=== PATIENT | male | born 1995 | race Caucasian/White ===

== ENCOUNTER 2017-07-30 16:11 | Emergency (ER) | payer BC ==
[2017-07-30 16:35] VITALS: BP 169/69
--- NOTE | 2017-07-30 17:11 | UC ---
Throat Pain/Nasal Beto HPI - HPI Summary HPI Summary: Pt presents with ST for one week. He tells me that about a week ago he developed a ST. The last 2-3 days he has had a mild headache. Both were relieved with ibuprofen. He had a friend who was recently dx'd with strep throat and wants to make sure he does not have it as well. He denies fever, chills, cough, SOB, chest pain, abdominal pain, N/V/D/C. - History of Current Complaint Chief Complaint: UCGeneralIllness Stated Complaint: THROAT PAIN Time Seen by Provider: 07/30/17 16:50 Hx Obtained From: Patient Onset/Duration: Gradual Onset Severity: Mild Pain Intensity: 2 Pain Scale Used: 0-10 Numeric - Allergies/Home Medications Allergies/Adverse Reactions: Allergies Allergy/AdvReac Type Severity Reaction Status Date / Time No Known Allergies Allergy Unverified 07/08/14 10:35 PMH/Surg Hx/FS Hx/Imm Hx Previously Healthy: Yes - Surgical History Surgical History: Yes Surgery Procedure, Year, and Place: needle removed from foot (not sure which) - Family History Known Family History: Positive: Cardiac Disease, Hypertension - Social History Occupation: Employed Full-time Lives: Alone Alcohol Use: Occasionally Substance Use Type: None Smoking Status (MU): Never Smoked Tobacco Review of Systems Constitutional: Negative Skin: Negative Eyes: Negative ENT: Sore Throat Respiratory: Negative Cardiovascular: Negative Gastrointestinal: Negative Neurological: Headache Psychological: Negative All Other Systems Reviewed And Are Negative: Yes Physical Exam Triage Information Reviewed: Yes Appearance: Well-Appearing, Well-Nourished Vital Signs: Initial Vital Signs Temp 98.2 F 07/30/17 16:29 Pulse 77 07/30/17 16:29 Resp 18 07/30/17 16:29 BP 169/69 07/30/17 16:29 Pulse Ox 100 07/30/17 16:29 Vital Signs Reviewed: Yes Eyes: Positive: Conjunctiva Clear, Other: - PERRLA. EOMI.. Negative: Conjunctiva Inflamed, Discharge ENT: Positive: Hearing grossly normal, Pharynx normal, TMs normal, Uvula midline. Negative: Pharyngeal erythema, Nasal congestion, Nasal drainage, TM bulging, TM dull, TM red, Tonsillar swelling, Tonsillar exudate, Muffled voice, Hoarse voice, Dental tenderness, Sinus tenderness Dental: Negative: Percussion Tenderness @, Dental Fracture @, Abscess @, Cellulitis @, Cervical Lymphadenopathy, Bleeding Neck: Positive: Supple, Nontender, No Lymphadenopathy Respiratory: Positive: Chest non-tender, Lungs clear, Normal breath sounds, No respiratory distress, No accessory muscle use Cardiovascular: Positive: RRR, No Murmur, Pulses Normal Neurological: Positive: Alert Psychological: Positive: Age Appropriate Behavior Skin: Negative: rashes Throat Pain/Nasal Course/Dx - Course Course Of Treatment: POC strep negative. Suspect viral illness. No indication for anbx at this time. Pt was agreeable to this and will continue with fluids and tylenol/ibuprofen. Regarding his elevated blood pressure at today's vist, he says that HTN runs in his family. 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 He will contact his bite block maker's office to see if they can recommend a new PCP for him - I also gave him the PCP referral number to call. Advised f/u within 1 month. Any increasing headache, dizziness, vision changes, weakness, SOB, or chest pain - go to ED. - Differential Dx/Diagnosis Differential Diagnosis/HQI/PQRI: Laryngitis, Mononucleosis, Pharyngitis, Tonsillitis, URI Provider Diagnoses: Viral pharyngitis Discharge - Discharge Plan Condition: Stable Disposition: HOME Patient Education Materials: Pharyngitis (ED) Referrals: Joaquin Sinclair MD [Primary Care Provider] - Additional Instructions: If you develop a fever, SOB, chest pain, new or worsening symptoms - please call your PCP or go to the ED. Your blood pressure was high at todays visit. Please see your primary provider within 4 weeks for recheck and re-evaluation. Strep test was negative today and there are no signs of bacterial infection on today's exam. Continue taking tylenol and/or ibuprofen for any fever or discomfort. Rest and drink plenty of water.
== END 2017-07-30 17:20 | disposition home or self-care (01) ==
LOC: UCEAST 16:11
DX: J02.8 Acute pharyngitis due to other specified organisms (principal); R03.0 Elevated blood-pressure reading, without diagnosis of hypertension; Z82.49 Family history of ischemic heart disease and other diseases of the circulatory system
CPT/HCPCS: 87651; 99201; G0463

== ENCOUNTER 2018-03-28 13:54 | Emergency (ER) | payer BC, OTHER ==
[2018-03-28 14:43] VITALS: BP 141/74
--- NOTE | 2018-03-28 15:35 | UC ---
Lower Extremity/Ankle HPI - HPI Summary HPI Summary: 22 yo male presents with LEFT foot injury. He tells me that yesterday while at work his left foot was slammed between a log and a tree stump. Had severe immediate pain and a significant limp all day yesterday. Today his pain is much improved and he is walking without a limp. He is here "just to make sure nothing is broken". Has not taken anything for the pain. Denies numbness or tingling. - History of Current Complaint Chief Complaint: UCLowerExtremity Stated Complaint: FOOT INJURY Time Seen by Provider: 03/28/18 15:35 Onset/Duration: Sudden Onset Severity Initially: Mild Severity Currently: Mild Pain Intensity: 3 Pain Scale Used: 0-10 Numeric Aggravating Factor(s): Standing, Ambulation Able to Bear Weight: Yes Related History: Occupational Injury - Allergies/Home Medications Allergies/Adverse Reactions: Allergies Allergy/AdvReac Type Severity Reaction Status Date / Time No Known Allergies Allergy Unverified 03/28/18 14:44 PMH/Surg Hx/FS Hx/Imm Hx - Additional Past Medical History Additional PMH: None Previously Healthy: Yes - Surgical History Surgical History: Yes Surgery Procedure, Year, and Place: needle removed from foot (not sure which) - Family History Known Family History: Positive: Unknown, Cardiac Disease, Hypertension - Social History Occupation: Employed Full-time Lives: With Family Alcohol Use: Occasionally Substance Use Type: None Smoking Status (MU): Never Smoked Tobacco Review of Systems Constitutional: Negative Skin: Negative Respiratory: Negative Cardiovascular: Negative Neurovascular: Negative Musculoskeletal: Other: - Left foot pain Neurological: Negative Psychological: Negative All Other Systems Reviewed And Are Negative: Yes Physical Exam - Summary Physical Exam Summary: GENERAL: NAD. WDWN. No pain distress. SKIN: No rashes, sores, lesions, or open wounds. NECK: Supple. Nontender. No lymphadenopathy. CHEST: No accessory muscle use. Breathing comfortably and in no distress. CV: Pulses intact PT and DP. Brisk cap refill. MSK: LEFT FOOT: Mild TTP over medial arch with superficial abrasion. Strength 5/ 5. No edema or obvious bony deformities. NEURO: Alert. Sensations intact and symmetric B/L LEs PSYCH: Age appropriate behavior. Triage Information Reviewed: Yes Vital Signs: Initial Vital Signs Temp 98.0 F 03/28/18 14:38 Pulse 53 03/28/18 14:38 Resp 16 03/28/18 14:38 BP 141/74 03/28/18 14:38 Pulse Ox 100 03/28/18 14:38 Vital Signs Reviewed: Yes Lower Extremity Course/Dx - Course Course Of Treatment: XR: IMPRESSION: NEGATIVE EXAMINATION. Foot is feeling better today. Suspect contusion. Advised to ice the area and take ibuprofen q6h prn pain. - Differential Dx/Diagnosis Provider Diagnoses: Left foot contusion Discharge - Sign-Out/Discharge Documenting (check all that apply): Patient Departure - Discharge Plan Condition: Stable Disposition: HOME Patient Education Materials: Foot Contusion (ED) Referrals: Anderson Middleton MD [Primary Care Provider] - [facility] [Provider Group] - If Needed Additional Instructions: If you develop a fever, shortness of breath, chest pain, new or worsening symptoms - please call your PCP or go to the ED. Your blood pressure was high at todays visit. Please see your primary provider within 4 weeks for recheck and re-evaluation. 1) Rest, Ice, and elevate your foot as much as possible. 2) If your symptoms worsen - please call Orthopedics at the number below to schedule a follow up appointment - Billing Disposition and Condition Condition: STABLE Disposition: Home
--- NOTE | 2018-03-28 15:50 | RAD ---
INDICATION: Left foot injury COMPARISON: None TECHNIQUE: AP, lateral, and oblique views were obtained. FINDINGS: The bony structures, joint spaces, and soft tissues are normal for age. IMPRESSION: NEGATIVE EXAMINATION.
== END 2018-03-28 16:00 | disposition home or self-care (01) ==
LOC: UCEAST 13:54
DX: S90.32XA Contusion of left foot, initial encounter (principal); W23.0XXA Caught, crushed, jammed, or pinched between moving objects, initial encounter; Y93.89 Activity, other specified; Y92.9 Unspecified place or not applicable; Y99.0 Civilian activity done for income or pay; Z82.49 Family history of ischemic heart disease and other diseases of the circulatory system
CPT/HCPCS: 99211; G0463

== ENCOUNTER 2019-10-16 10:07 | Emergency (ER) | payer BC ==
[2019-10-16 11:35] VITALS: BP 135/75
--- NOTE | 2019-10-16 11:36 | UC ---
Skin Complaint HPI - HPI Summary HPI Summary: 23 yo male presents with abscess. He tells me that last night he noticed swelling and pain to his right lower jaw. He had a full echols and has had small abscesses in the past, but nothing this large. He shaved his echols this morning and came to for evaluation. Area is mildly tender. No fevers, drainage, or hx of MRSA - History of Current Complaint Chief Complaint: UCSkin Time Seen by Provider: 10/16/19 11:36 Stated Complaint: ABSCESS Hx Obtained From: Patient Onset/Duration: Sudden Onset Onset Severity: Mild Current Severity: Mild Pain Intensity: 2 Pain Scale Used: 0-10 Numeric - Allergy/Home Medications Allergies/Adverse Reactions: Allergies Allergy/AdvReac Type Severity Reaction Status Date / Time No Known Allergies Allergy Verified 10/16/19 11:35 Home Medications: Home Medications Sulfamethox/Trimethoprim DS* [Bactrim DS 800/160 TAB*] 1 tab PO BID 7 Days #14 tab 10/16/19 [Rx] PMH/Surg Hx/FS Hx/Imm Hx - Additional Past Medical History Additional PMH: None - Surgical History Surgical History: Yes Surgery Procedure, Year, and Place: needle removed from foot (not sure which) - Family History Known Family History: Positive: Cardiac Disease, Hypertension - Social History Occupation: Employed Full-time Lives: With Family Alcohol Use: Occasionally Substance Use Type: None Smoking Status (MU): Never Smoked Tobacco Review of Systems All Other Systems Reviewed And Are Negative: No Constitutional: Positive: Negative Skin: Positive: Other - Abscess face Respiratory: Positive: Negative Cardiovascular: Positive: Negative Neurovascular: Positive: Negative Neurological/Mental Status: Positive: Negative Psychological: Positive: Negative Physical Exam - Summary Physical Exam Summary: GENERAL: NAD. WDWN. No pain distress. SKIN: Overlying the right mid mandible there is a 1.5cm area of mild erythema, edema, and induration. No fluctuance. Mildly TTP. No warmth, streaking, or active drainage. NECK: Supple. Nontender. No lymphadenopathy. CHEST: No accessory muscle use. Breathing comfortably and in no distress. CV: Pulses intact. Cap refill <2seconds NEURO: Alert. PSYCH: Age appropriate behavior. Triage Information Reviewed: Yes Vital Signs: Initial Vital Signs Temp 98.2 F 10/16/19 11:31 Pulse 60 10/16/19 11:31 Resp 16 10/16/19 11:31 BP 135/75 10/16/19 11:31 Pulse Ox 100 10/16/19 11:31 Vital Signs Reviewed: Yes Course/Dx - Course Course Of Treatment: Abscess of face non-dental. Rx for bactrim. Advised to return if area comes to a head for I&D - Diagnoses Provider Diagnosis: Abscess of face Discharge ED - Sign-Out/Discharge Documenting (check all that apply): Patient Departure All imaging exams completed and their final reports reviewed: No Studies - Discharge Plan Condition: Stable Disposition: HOME Prescriptions: Sulfamethox/Trimethoprim DS* [Bactrim DS 800/160 TAB*] 1 tab PO BID 7 Days #14 tab Patient Education Materials: Abscess (ED) Referrals: Anderson Middleton MD [Primary Care Provider] - Additional Instructions: If you develop a fever, shortness of breath, chest pain, new or worsening symptoms - please call your PCP or go to the ED immediately. Apply a warm compress to the area and take your antibiotic as directed If there area gets larger or comes to a "head" - please return to have this lanced and drained - Billing Disposition and Condition Condition: STABLE Disposition: Home
== END 2019-10-16 12:02 | disposition home or self-care (01) ==
LOC: UCEAST 10:07
DX: L02.01 Cutaneous abscess of face (principal)
CPT/HCPCS: 99212; G0463